=== PATIENT | male | born 1995 | race African-American/Black ===

== ENCOUNTER 2017-03-08 16:49 | Emergency (ER) | payer OTHER ==
[~2017-03-08] VITALS: Ht 185.4 cm; Wt 68.0 kg
[2017-03-08 16:49] VITALS: BP 141/76
[~2017-03-08 16:49] MED LIST: ADVAIR 100-501 EACH; ADVAIR HFA 1112 UNIT INH; ALBUTEROL2.5 MG/0.5 INH; NORCO 5-325 TA1 EACH PO; PREDNISONE 20 M20 MG PO; SINGULAIR 10 MG10 M1 PO; TRAMADOL 50 MG50 MG PO; VENTOLIN HFA 1818 GM; VENTOLIN HFA 1818 GM INH
[2017-03-08 17:09] LABS: URINE BILIRUBIN NEGATIVE (Negative); URINE BLOOD NEGATIVE (Negative); URINE COLOR YELLOW; URINE GLUCOSE-RANDOM* NEGATIVE (Negative); URINE KETONES NEGATIVE (Negative); URINE NITRITE NEGATIVE (Negative); URINE PROTEIN (DIPSTICK) NEGATIVE (Negative); URINE SPECIFIC GRAVITY 1.015 (1.005-1.035); URINE UROBILINOGEN 0.2 E.U./dl (0.2-1.0)
== END 2017-03-08 17:21 | disposition home or self-care (01) ==
LOC: ER 16:49
PROVIDERS: Physician Assistant
DX: Z20.2 Contact with and (suspected) exposure to infections with a predominantly sexual mode of transmission (principal); J45.909 Unspecified asthma, uncomplicated

== ENCOUNTER 2019-12-31 23:46 | Emergency (ER) | payer OTHER ==
[~2019-12-31] VITALS: Ht 185.4 cm; Wt 72.6 kg
[2020-01-01] MEDS ORDERED: PREDNISONE 20 M20 MG PO (04:28)
[2020-01-01 05:01] VITALS: BP 120/59
== END 2020-01-01 05:04 | disposition home or self-care (01) ==
LOC: ER 23:46
DX: T78.01XA Anaphylactic reaction due to peanuts, initial encounter (principal); J45.909 Unspecified asthma, uncomplicated; Z79.899 Other long term (current) drug therapy